=== PATIENT | female | born 1945 | race Caucasian/White ===

== ENCOUNTER 2016-04-25 11:43 | Observation (INO) | payer OTHER ==
--- NOTE | 2016-04-25 12:04 | CPEKG ---
Heart Rate: 71 RR Interval: 845 P-R Interval: 136 QRSD Interval: 78 QT Interval: 408 QTC Interval: 444 P [place]: 64 QRS [place]: -2 T Wave [place]: 53 EKG Severity - NORMAL ECG - EKG Impression: SINUS RHYTHM Electronically Signed By: Brandie Gaming 25-Apr-2016 15:39:40
--- NOTE | 2016-04-25 12:28 | EDPHY ---
H & P Stated Complaint: DIZZY SINCE WAKING THIS AM, MILD L SIDED CP THIS AM Time Seen by Provider: 04/25/16 11:56 HPI/ROS: CHIEF COMPLAINT: Dizziness, Chest pain HISTORY OF PRESENT ILLNESS: The patient is a 71 year old female presenting with dizziness that she woke up with this morning. The patient states she stood up from bed and felt like "the world was rocking" and had to lie back down. She states she felt unsteady and had to hold onto things for stabilization. She went back to sleep. When she woke up the second time she felt left sided chest pain that was 8/10. This pain lasted for 15 minutes and radiated into her left armpit. She denies associated diaphoresis, nausea, or shortness of breath. She continues to feel dizzy, which is worse positionally. She has associated nausea. While walking into the ED she felt short of breath. She denies fever, chills, palpitations, vomiting, diarrhea, or urinary complaints. Of note, patient reports lower extremity tingling over the last 24 hours. Last night she felt a sharp pain behind her eyes that lasted for about 1 minute. Her eyes were shut. She now has a very mild headache. REVIEW OF SYSTEMS: Aside from elements discussed in the HPI, a comprehensive 10-point review of systems was reviewed and is negative. PAST MEDICAL HISTORY: Denies. SOCIAL HISTORY: Daughter at bedside ([employer] CUT[employer] HELPER at [employer]). VITAL SIGNS: Reviewed by me GENERAL: Well-developed, well-nourished, resting comfortably in no respiratory distress. HEENT: Atraumatic. Eyes: Nystagmus on leftward gaze. Mouth: moist mucous membranes. No erythema or lesions. Neck: supple with no adenopathy. LUNGS: Clear to auscultation bilaterally, no wheezes, rhonchi or rales. CARDIAC: Regular rate and rhythm, no rubs, murmurs or gallops. ABDOMEN: Soft, nontender, nondistended, bowel sounds normal. BACK: No CVA tenderness. EXTREMITIES: No trauma. No edema. Range of motion is normal throughout. NEURO: Alert and oriented, grossly nonfocal. SKIN: Warm and dry, no rash. PSYCHIATRIC: Normal mentation, no agitation. Portions of this note were transcribed by a medical coding instructor. I personally performed a history, physical exam, medical decision making, and confirmed accuracy of information the transcribed note. - Personal History Current Tetanus/Diphtheria Vaccine: Unsure Current Tetanus Diphtheria and Acellular Pertussis (TDAP): Unsure - Medical/Surgical History Hx Asthma: No Hx Chronic Respiratory Disease: No Hx Diabetes: No Hx Cardiac Disease: No Hx Renal Disease: No Hx Cirrhosis: No Hx Alcoholism: No Hx HIV/AIDS: No Hx Splenectomy or Spleen Trauma: No Other PMH: PSH- ORTHO - Social History Smoking Status: Former smoker Constitutional: Initial Vital Signs Temperature (C) 36.4 C 04/25/16 11:44 Heart Rate 77 04/25/16 11:44 Respiratory Rate 16 04/25/16 11:44 Blood Pressure 122/80 H 04/25/16 11:44 O2 Sat (%) 96 04/25/16 11:44 O2 Delivery Mode Room Air Allergies/Adverse Reactions: amoxicillin Allergy (Verified 04/25/16 11:47) Milk Containing Products [dairy] Allergy (Verified 04/25/16 11:47) Penicillins Allergy (Verified 04/25/16 11:47) sulindac Allergy (Verified 04/25/16 11:47) Home Medications: Medication Instructions Recorded Aspirin [Aspirin 81mg (*)] 81 mg PO Q2D 04/25/16 Glucosamine/Chondroitin 1 each PO DAILY 04/25/16 [Glucosamine/Chondroitin (*)] Herbals/Supplements -Info Only 1 ea PO DAILY 04/25/16 [place]-3 Fatty Acids [Fish Oil 1000 1,000 mg PO DAILY 04/25/16 mg (*)] Pseudoephedrine HCl [Sudafed 30mg 30 mg PO DAILY PRN 04/25/16 (OTC)] Meclizine HCl [Meclizine HCl 25 mg 25 mg PO Q6 PRN #30 tab 04/26/16 (RX,OTC)] Medical Decision Making - Diagnostics EKG Interpretation: The 12 lead EKG was interpreted by myself. See hard copy and/or "tracemaster" electronic copy for interpretation: Sinus rhythm. Imaging: X-ray: Chest was obtained. I viewed the images myself on the PACS system. My interpretation of the images is: Normal. The radiologist interpretation is: Negative for acute disease. I discussed the x-ray findings with the patient. ED Course/Re-evaluation: The patient received 25mg Meclizine PO. Chest x-ray is pending. Troponin is negative. Chest x-ray is normal. Plan to admit patient for further evaluation of her symptoms. Patient may require further testing for coronary artery disease, arrhythmias, or neurologic cause of her symptoms. Differential Diagnosis: After history and physical examination, the differential for patient's symptom complex was considered, including but not limited to, myocardial ischemia, acute coronary syndrome, pulmonary embolus, peripheral and central causes of vertigo, cardiac arrhythmias, cardiac ischemia, electrolyte disturbances, neurologic causes, orthostatic causes including dehydration, and blood loss. Consult/Admit Bed Type: [facility], Dr. Chelo Saleem - Data Points Laboratory Results: Laboratory Results 04/25/16 12:15 04/25/16 12:15 Medications Given: Discontinued Medications Meclizine HCl (Meclizine Hcl) 25 mg PO EDNOW ONE Stop: 04/25/16 13:01 Last Admin: 04/25/16 13:12 Dose: 25 mg Departure - Departure Disposition: [facility] Acute Clinical Impression: Chest pain, Dizziness Condition: Fair Report Scribed for: Brandie Gaming Report Scribed by: Palma Ling Date of Report: 04/25/16 Time of Report: 12:29
[2016-04-25 12:45] LABS: % IMMATURE GRANULYOCYTES 0.3 % (0.0-1.1); ABSOLUTE IMMATURE GRANULOCYTES 0.02 10^3/uL (0.00-0.10); ADD DIFF? NO; ADD MORPH? NO; ADD SCAN? NO; ATYPICAL LYMPHOCYTE FLAG 20 (0-99); FRAGMENT RBC FLAG 0 (0-99); HEMATOCRIT 45.1 % (38.0-47.0); HEMOGLOBIN 15.3 g/dL (12.6-16.3); LEFT SHIFT FLG 0 (0-99); LIPEMIA HEMOLYSIS FLAG 90 (0-99); MEAN CELL HEMOGLOBIN 31.8 pg (27.9-34.1); MEAN CELL HEMOGLOBIN CONCENTR. 33.9 g/dL (32.4-36.7); MEAN CELL VOLUME 93.8 fL (81.5-99.8); MEAN PLATELET VOLUME 9.9 fL (8.7-11.7); PLATELET CLUMPS FLAG 0 (0-99); PLATELET COUNT 288 10^3/uL (150-400); RED BLOOD CELL COUNT 4.81 10^6/uL (4.18-5.33); RED CELL DISTRIBUTION WIDTH 13.1 % (11.5-15.2)
[2016-04-25 12:57] LABS: ANION GAP 11 mEq/L (8-16); CALCIUM 9.5 mg/dL (8.5-10.4); CARBON DIOXIDE 24 mEq/l (22-31); CHLORIDE 107 mEq/L (97-110); CREATININE 0.8 mg/dL (0.6-1.0); GLOMERULAR FILTRATION RATE > 60; GLUCOSE 77 mg/dL (70-100); POTASSIUM 4.5 mEq/L (3.5-5.2); SODIUM 142 mEq/L (134-144)
[2016-04-25] MEDS ORDERED: MECLIZINE HCL 25 MG TAB PO ONE (13:00)
[2016-04-25 13:08] LABS: CREATINE KINASE-MB FRACTION 1.01 ng/mL (0-3.19); TROPONIN I < 0.012 ng/mL (0-0.034)
[2016-04-25] MEDS ORDERED: NITROGLYCERIN 0.4 MG BTL SL PRN (15:02)
[2016-04-25] MEDS ORDERED: ONDANSETRON 4 MG/2 ML VIAL IVP PRN (16:14)
[2016-04-25] MEDS ORDERED: ONDANSETRON DISINTEGRATING 4 MG TAB PO PRN (16:14)
[2016-04-25] MEDS ORDERED: ACETAMINOPHEN 325 MG TAB PO PRN (16:14)
[2016-04-25] MEDS ORDERED: MECLIZINE HCL 25 MG TAB PO PRN (16:16)
--- NOTE | 2016-04-25 16:40 | GHP ---
[f rep st] HISTORY AND PHYSICAL DATE OF ADMISSION: 04/25/2016 CHIEF COMPLAINT: Vertigo and chest pain. HISTORY OF PRESENT ILLNESS: This is a 71-year-old female, who is quite healthy at baseline. She rowell s had a few episodes of vertigo in the past, mostly 20 years ago. About 3 weeks ago, she developed an episode of vertigo and has been taking Sudafed for it. It seems to be helping; but has been occurring on a daily basis, although has been improving over the last 3 days. This morning she woke up with acute sense of unsteadiness. This was associated with nausea. She al so has some chest pressure that was mild, and possibly with shortness of breath. She describes her symptoms as unsteadiness, difficulty walking; but does not really have visual sensation of spinning environment. She has not had any respiratory tract infections or has fevers or chills. She did hav e a little bit of headache yesterday. She never gets chest pain. REVIEW OF SYSTEMS: A 10-point review of systems was obtained and negative. PAST MEDICAL HISTORY: 1. Remote history of vertigo 20 years ago. 2. Osteoarthritis. MEDICATIONS: Supplements. SOCIAL HISTORY: No smoking. Occasional alcohol. Has her daughter and granddaughter living with he r. FAMILY HISTORY: Father had coronary disease in his 80s. No strokes. PHYSICAL EXAM: VITAL SIGNS: Afebrile. Blood pressure is 107/70, heart rate 68, oxygen saturation 96% on room air. GENERAL: The patient is well-developed, in no apparent distress. HEENT: Nonicte ethel sclerae. She does have some nystagmus with left gaze. NECK: Supple. No thyromegaly. LUNGS: Good effort. Clear to auscultation bilaterally. CARDIOVASCULAR: Regular rate and rhythm. No mur murs, gallops. ABDOMEN: Positive bowel sounds. Soft, nontender, nondistended. No hepatosplenomeg neo. EXTREMITIES: No clubbing, cyanosis, or edema. SKIN: No rash. NEUROLOGIC: Intact. Alert x 3. Cranial nerves 2-12 grossly intact. No cerebellar. [id number] is normal. PSYCHIATRIC: No rmal mood and affect. LABS: CBC is normal. Chemistries normal. Troponin is negative. EKG shows normal sinus rhythm. N o acute changes. Chest x-ray personally reviewed and interpreted as normal. ASSESSMENT: This is a 71-year-old female presenting with vertigo like symptoms, as well as some yeni st pressure. PLAN: 1. Vertigo/unsteadiness: Her symptoms are not entirely consistent with benign positional vertigo, and their duration has been fairly long for labyrinthitis. For this reason, as well as the fact stephie t she does not have visual aspects of vertigo, will go ahead and get an MRI of her brain to rule out CVA. If this is negative, we will get physical therapy to help with her perhaps some maneuvers stephie t may help with this positional vertigo. Continue meclizine as needed. 2. Chest pressure: This is mild. Troponin is negative. EKG is normal. She has no risk factors. Will cycle her troponins. If they are negative, will probably opt for outpatient stress test, sinc e if she still has vertigo symptoms, would not be able to walk on a treadmill, and I do not think th at indications are strong enough to get a chemically-induced nuclear stress test. /[id number]/MODL
[2016-04-26 09:16] VITALS: BP 119/67; PULSE 85; RESP 18; TEMP 97.2; O2SAT 96
--- NOTE | 2016-04-26 09:31 | GDS ---
[f rep st] DISCHARGE SUMMARY DISCHARGE DIAGNOSES: 1. Vertigo, possibly benign positional vertigo versus acute labyrinthitis. 2. Transient chest pain. HISTORY: This is a 71-year-old year female with no past medical history, nor any cardiac risk facto rs, who presented with vertigo that has been going on for a couple weeks on and off. HOSPITAL COURSE: The patient was admitted and because symptoms were a little bit atypical, she did undergo MRI of her brain. 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 The following day, her symptoms completely had resolved. She did have huffman sient chest pressure during intense episodes of vertigo. This has resolved as well. Cardiac enzyme s are negative x3. We are going to defer stress testing until she sees her primary care physician, as I do not want to precipitate an episode of vertigo and she has very little from 9 cardiac risk fa ctors. I have given her names of several primary for care physician to follow up with. /[id number]/MODL
[2016-04-27] MEDS ORDERED: ASPIRIN 81 MG CHEWABLE TAB PO SCH (09:00)
== END 2016-04-26 09:45 | disposition home or self-care (01) ==
LOC: F1N 14:43
PROVIDERS: ADMIT Internal Medicine; ATTEND Internal Medicine
DX: R42 Dizziness and giddiness (principal); R07.9 Chest pain, unspecified; Z86.73 Personal history of transient ischemic attack (TIA), and cerebral infarction without residual deficits; M48.02 Spinal stenosis, cervical region; M19.90 Unspecified osteoarthritis, unspecified site; Z82.49 Family history of ischemic heart disease and other diseases of the circulatory system; Z87.891 Personal history of nicotine dependence; Z88.0 Allergy status to penicillin
CPT/HCPCS: 70551; 71020; 93005; G0378

== ENCOUNTER 2016-05-16 13:57 | Emergency (ER) | payer OTHER ==
--- NOTE | 2016-05-16 14:29 | CPEKG ---
Heart Rate: 78 RR Interval: 769 P-R Interval: 136 QRSD Interval: 74 QT Interval: 392 QTC Interval: 447 P [place]: 64 QRS [place]: 31 T Wave [place]: 57 EKG Severity - NORMAL ECG - EKG Impression: SINUS RHYTHM Electronically Signed By: Jonah Aponte 16-May-2016 21:57:35
[2016-05-16] MEDS ORDERED: NS 1,000 ML IV ONE (14:41)
[2016-05-16 14:47] LABS: % IMMATURE GRANULYOCYTES 0.4 % (0.0-1.1); ABSOLUTE IMMATURE GRANULOCYTES 0.03 10^3/uL (0.00-0.10); ADD DIFF? NO; ADD MORPH? NO; ADD SCAN? NO; ATYPICAL LYMPHOCYTE FLAG 30 (0-99); FRAGMENT RBC FLAG 10 (0-99); HEMATOCRIT 46.9 % (38.0-47.0); HEMOGLOBIN 15.9 g/dL (12.6-16.3); LEFT SHIFT FLG 0 (0-99); LIPEMIA HEMOLYSIS FLAG 90 (0-99); MEAN CELL HEMOGLOBIN 30.5 pg (27.9-34.1); MEAN CELL HEMOGLOBIN CONCENTR. 33.9 g/dL (32.4-36.7); MEAN CELL VOLUME 89.8 fL (81.5-99.8); MEAN PLATELET VOLUME 9.8 fL (8.7-11.7); PLATELET CLUMPS FLAG 40 (0-99); PLATELET COUNT 235 10^3/uL (150-400); RED BLOOD CELL COUNT 5.22 10^6/uL (4.18-5.33); RED CELL DISTRIBUTION WIDTH 12.5 % (11.5-15.2)
[2016-05-16 15:00] LABS: ANION GAP 13 mEq/L (8-16); CARBON DIOXIDE 22 mEq/l (22-31); CHLORIDE 100 mEq/L (97-110); CREATININE 1.1 mg/dL (0.6-1.0); GLOMERULAR FILTRATION RATE 49; GLUCOSE 105 mg/dL (70-100); POTASSIUM 4.3 mEq/L (3.5-5.2); SODIUM 135 mEq/L (134-144)
[2016-05-16 15:12] LABS: TROPONIN I < 0.012 ng/mL (0-0.034)
--- NOTE | 2016-05-16 15:38 | EDPHY ---
HPI/HX/ROS/PE/MDM Narrative: CHIEF COMPLAINT: Syncope HISTORY OF PRESENT ILLNESS: The patient is a 71-year-old female presenting with syncopal episode today while at her PCPs office. The patient went to here PCPs office this morning for ongoing cold-like symptoms that have progressively worsened over the last 5 days ago. The patient feels very nauseous and has only consumed 24 ounces of fluid in the last 48 hours. She had an oral temperature of 101 while at her PCPs. According to the patient's daughter who is an PARTS CONTROL CLERK at , the patient was sitting at her PCPs and suddenly did not feel right. She became unresponsive while seated for about 20 seconds. The patient did not hit her head. According to daughter, the patient had a right deviated gaze and dilated pupils. She came to and was oriented x3, but had some slurred speech for very brief period of time.. The patient notes intermittent headaches. She denies chest pain, shortness of breath, palpitations, vomiting, diarrhea, or urinary complaints. No cardiac history or history of hypertension. No history of recent head injury, on no blood thinners, no history of seizures. REVIEW OF SYSTEMS: Aside from elements discussed in the HPI, a comprehensive 10-point review of systems was reviewed and is negative. PAST MEDICAL HISTORY: Vertigo. SOCIAL HISTORY: Daughter is a PARTS CONTROL CLERK at [employer], working in the emergency department. VITAL SIGNS: Reviewed by me. Temperature 37.6. GENERAL: Well-developed, well-nourished, resting comfortably in no respiratory distress. HEENT: Atraumatic. Eyes: No icterus, no injection. Mouth: moist mucous membranes. No erythema or lesions. Neck: supple with no adenopathy. LUNGS: Clear to auscultation bilaterally, no wheezes, rhonchi or rales. CARDIAC: Regular rate and rhythm, no rubs, murmurs or gallops. ABDOMEN: Soft, nontender, nondistended, bowel sounds normal. BACK: No CVA tenderness. EXTREMITIES: No trauma. No edema. Range of motion is normal throughout. NEURO: Alert and oriented, grossly nonfocal. SKIN: Warm and dry, no rash. PSYCHIATRIC: Normal mentation, no agitation. Portions of this note were transcribed by a medical aide. I personally performed a history, physical exam, medical decision making, and confirmed accuracy of information the transcribed note. ED Course: The patient is a 71 year old female presenting with possible seizure or syncope that occurred while at her PCPs office. The patient suddenly became unresponsive for about 30 seconds. She had a right sided gaze. The patient came to and was oriented x3. The patient was sent here for further evaluation. She was diagnosed with influenza at her PCPs office. She has not tolerated PO recently secondary to nausea. and has only consumed 24 ounces of fluids for the past 48 hours. IV was established, patient received 1L normal saline. The 12 lead EKG was interpreted by myself. See hard copy and/or "tracemaster" electronic copy for interpretation: Sinus rhythm. X-ray of the chest was obtained. I viewed the images myself on the PACS system. No pneumonia. See the full radiology report in the imaging section. I discussed CT head, patient declines at this time. The patient recently had a negative brain MRI after episode of vertigo for which she was evaluated for in the ED. Plan for a second liter of IV fluids and 4mg Zofran. 4:30 p.m.: Patient tolerated POs. Plan to discharge home. MDM: Differential diagnosis of the patient's unresponsive event was considered including but not limited to electrolyte abnormality, vasovagal syncope, arrhythmia, dehydration, partial complex seizure, absent seizure, and blood loss. - Data Points Imaging Results: Imaging Impressions Chest X-Ray 05/16/16 14:26 Impression: Central bronchitis, otherwise negative exam. Hiatal hernia.. Laboratory Results: Laboratory Results 05/16/16 14:22 05/16/16 14:22 05/16/16 05/16/16 14:22 14:22 WBC 7.81 10^3/uL 10^3/uL (3.80-9.50) RBC 5.22 10^6/uL 10^6/uL (4.18-5.33) Hgb 15.9 g/dL g/dL (12.6-16.3) Hct 46.9 % % (38.0-47.0) MCV 89.8 fL fL (81.5-99.8) MCH 30.5 pg pg (27.9-34.1) MCHC 33.9 g/dL g/dL (32.4-36.7) RDW 12.5 % % (11.5-15.2) Plt Count 235 10^3/uL 10^3/uL (150-400) MPV 9.8 fL fL (8.7-11.7) Neut % (Auto) 72.3 % % (39.3-74.2) Lymph % (Auto) 17.9 % % (15.0-45.0) [place] % (Auto) 9.1 % % (4.5-13.0) Eos % (Auto) 0.0 % L % (0.6-7.6) Baso % (Auto) 0.3 % % (0.3-1.7) Nucleat RBC Rel Count 0.0 % % (0.0-0.2) Absolute Neuts (auto) 5.65 10^3/uL 10^3/uL (1.70-6.50) Absolute Lymphs (auto) 1.40 10^3/uL 10^3/uL (1.00-3.00) Absolute Monos (auto) 0.71 10^3/uL 10^3/uL (0.30-0.80) Absolute Eos (auto) 0.00 10^3/uL L 10^3/uL (0.03-0.40) Absolute Basos (auto) 0.02 10^3/uL 10^3/uL (0.02-0.10) Absolute Nucleated RBC 0.00 10^3/uL 10^3/uL (0-0.01) Immature Gran % 0.4 % % (0.0-1.1) Immature Gran # 0.03 10^3/uL 10^3/uL (0.00-0.10) Sodium 135 mEq/L mEq/L (134-144) Potassium 4.3 mEq/L mEq/L (3.5-5.2) Chloride 100 mEq/L mEq/L (97-110) Carbon Dioxide 22 mEq/l mEq/l (22-31) Anion Gap 13 mEq/L mEq/L (8-16) BUN 20 mg/dL mg/dL (7-23) Creatinine 1.1 mg/dL H mg/dL (0.6-1.0) Estimated GFR 49 Glucose 105 mg/dL H mg/dL (70-100) Calcium 9.0 mg/dL mg/dL (8.5-10.4) Troponin I < 0.012 ng/mL ng/mL (0-0.034) Medications Given: Discontinued Medications Sodium Chloride (Ns) 1,000 mls @ 0 mls/hr IV ONCE ONE PRN Reason: Wide Open Stop: 05/16/16 14:42 Last Admin: 05/16/16 15:05 Dose: 1,000 mls Sodium Chloride (Ns) 500 mls @ 0 mls/hr IV ONCE ONE PRN Reason: As Directed Stop: 05/16/16 15:49 Last Admin: 05/16/16 16:06 Dose: 500 mls Ondansetron HCl (Zofran) 4 mg IVP EDNOW ONE Stop: 05/16/16 15:48 Last Admin: 05/16/16 16:06 Dose: 4 mg General Time Seen by Provider: 05/16/16 14:34 Initial Vital Signs: Initial Vital Signs Temperature (C) 37 C 05/16/16 13:58 Heart Rate 85 05/16/16 13:58 Respiratory Rate 18 05/16/16 13:58 Blood Pressure 120/77 05/16/16 13:58 O2 Sat (%) 93 05/16/16 13:58 O2 Delivery Mode Room Air Allergies/Adverse Reactions: amoxicillin Allergy (Verified 05/16/16 13:57) Milk Containing Products [dairy] Allergy (Verified 05/16/16 13:57) Penicillins Allergy (Verified 05/16/16 13:57) sulindac Allergy (Verified 05/16/16 13:57) Home Medications: Medication Instructions Recorded Aspirin [Aspirin 81mg (*)] 81 mg PO Q2D 04/25/16 Glucosamine/Chondroitin 1 each PO DAILY 04/25/16 [Glucosamine/Chondroitin (*)] Herbals/Supplements -Info Only 1 ea PO DAILY 04/25/16 [place]-3 Fatty Acids [Fish Oil 1000 1,000 mg PO DAILY 04/25/16 mg (*)] Pseudoephedrine HCl [Sudafed 30mg 30 mg PO DAILY PRN 04/25/16 (OTC)] Meclizine HCl [Meclizine HCl 25 mg 25 mg PO Q6 PRN #30 tab 04/26/16 (RX,OTC)] Azithromycin [Zithromax] 250 mg PO DAILY #6 tab 05/16/16 Ondansetron Odt [Zofran Odt 4 mg 4 mg PO Q6 PRN #8 tab 05/16/16 (RX)] Departure - Departure Disposition: Home, Routine, Self-Care Clinical Impression: Transient loss of consciousness Syncope Qualifiers: Syncope type: unspecified Qualified Code(s): R55 - Syncope and collapse Condition: Good Instructions: Dehydration (ED), Influenza (ED) Additional Instructions: 1. Take Zofran as directed for nausea. 2. Use Flonase and cough suppressant to help with congestion and cough. 3. Drink plenty of fluids. 4. Take Tylenol as directed for fever. 5. Take full course of Azithromycin if symptoms persist. 6. Followup with your primary care physician if you do not improve. Referrals: ERIC IRELAND [employer]S CONTROL CLERK [Primary Care Provider] - As per Instructions Prescriptions: Azithromycin [Zithromax] 250 mg PO DAILY #6 tab Ondansetron Odt [Zofran Odt 4 mg (RX)] 4 mg PO Q6 PRN #8 tab PRN Reason: Nausea
[2016-05-16] MEDS ORDERED: ONDANSETRON 4 MG/2 ML VIAL IVP ONE (15:47)
[2016-05-16] MEDS ORDERED: NS 500 ML IV ONE (15:48)
[2016-05-16 16:54] VITALS: BP 140/78; PULSE 80; RESP 16; TEMP 99.3; O2SAT 94
== END 2016-05-16 16:53 | disposition home or self-care (01) ==
DX: R55 Syncope and collapse (principal)
CPT/HCPCS: 71020; 93005; 96361; 96374; 99285; J2405

== ENCOUNTER → 2017-06-04 | Outpatient (CLI) | payer OTHER | LOC: BMCIMAGING 13:18 | PROVIDERS: ATTEND Registered Nurse | DX: Z13.820 Encounter for screening for osteoporosis (principal); M85.89 Other specified disorders of bone density and structure, multiple sites; Z78.0 Asymptomatic menopausal state ==